=== PATIENT | female | born 1990 | race Caucasian/White ===

== ENCOUNTER 2018-10-16 23:43 | Outpatient (CLI) | payer MEDICAID ==
[~2018-10-16] VITALS: Ht 157.5 cm; Wt 80.0 kg
[~2018-10-16 23:43] MED LIST: ONDA4TAB7 PO; PREN-3 PO
[2018-10-17 00:42] LABS: MICROSCOPIC INDICATED
== END 2018-10-17 01:00 | disposition home or self-care (01) ==
LOC: LDOP 23:43
PROVIDERS: ATTEND Obstetrics & Gynecology
DX: O26.893 Other specified pregnancy related conditions, third trimester (principal); Z3A.37 37 weeks gestation of pregnancy
CPT/HCPCS: 59025; 81001; 99211; G0463

== ENCOUNTER 2018-10-25 11:15 | Inpatient (IN) | payer MEDICAID ==
[~2018-10-25] VITALS: Ht 157.5 cm; Wt 81.8 kg
[2018-10-25] MEDS ORDERED: LACTATED RINGERS 1,000 ML IV SCH (11:35)
[2018-10-25] MEDS ORDERED: OXYTOCIN 30U/ 0.9% NaCL 500ML 500 ML IV ONE (11:35)
[2018-10-25] MEDS ORDERED: MISOPROSTOL 200 MCG TABLET ONE (11:46)
[2018-10-25] MEDS ORDERED: OXYTOCIN 30U/ 0.9% NaCL 500ML 500 ML ONE (11:46)
[2018-10-25] MEDS ORDERED: LIDOCAINE 1%, 20ML ONE (11:46)
[2018-10-25] MEDS ORDERED: NEWBORN KIT ONE (11:47)
[2018-10-25 11:59] VITALS: BP 106/76
[2018-10-25 11:59] LABS: BASOPHILS # (AUTO) 0.08 x10^3/uL (0-0.1); BASOPHILS % (AUTO) 1 % (0-1); EOSINOPHILS # (AUTO) 0.02 x10^3/uL (0-0.4); EOSINOPHILS % (AUTO) 0 % (1-7); LYMPHOCYTES # (AUTO) 1.74 x10^3/uL (1-3.4); LYMPHOCYTES % (AUTO) 15 % (22-44); MD NO; MEAN CORPUSCULAR HEMOGLOBIN 31.2 pg (27.0-34.8); MEAN CORPUSCULAR HGB CONC 34.2 g/dL (32.4-35.8); MEAN CORPUSCULAR VOLUME 91.1 fL (80-100); MEAN PLATELET VOLUME 9.5 fL (7.4-10.4); MONOCYTES # (AUTO) 0.77 x10^3/uL (0.2-0.8); MONOCYTES % (AUTO) 7 % (2-9); NEUTROPHILS # (AUTO) 8.93 x10^3/uL (1.8-6.8); NEUTROPHILS % (AUTO) 77 % (42-75); PLATELET COUNT 202 x10^3/uL (130-400); RED BLOOD COUNT 3.98 x10^6/uL (3.82-5.3); RED CELL DISTRIBUTION WIDTH 12.8 % (9.6-15.2)
[2018-10-25] MEDS ORDERED: PLEASE ENTER HEIGHT AND WEIGHT MC SCH (12:00)
[2018-10-25] MEDS ORDERED: FENTANYL PF 100 MCG/2ML IVPush PRN (12:00)
[2018-10-25] MEDS ORDERED: FENTANYL PF 100 MCG/2ML IV PRN (12:00)
[2018-10-25] MEDS ORDERED: ONDANSETRON 2MG/ML, 2ML IVPush PRN (12:00)
[2018-10-25] MEDS ORDERED: FENTANYL PF 100 MCG/2ML ONE (13:33)
[2018-10-25] MEDS: OXYTOCIN 30U/ 0.9% NaCL 500ML 500 ML IV SCH ×2 (14:40→18:45)
[2018-10-25] MEDS ORDERED: IBUPROFEN 600 MG TABLET ONE (14:48)
[2018-10-25] MEDS ORDERED: OXYcodone/APAP 5/325MG TABLET ONE (14:49)
[2018-10-25] MEDS: OXYcodone/APAP 5/325MG TABLET PO PRN (14:51)
[2018-10-25] MEDS: IBUPROFEN 600 MG TABLET PO PRN ×2 (14:51→22:38)
[2018-10-25] MEDS ORDERED: OXYcodone/APAP 5/325MG TABLET PO PRN (15:00)
[2018-10-25] MEDS ORDERED: ONDANSETRON 2MG/ML, 2ML IV PRN (15:00)
[2018-10-25] MEDS ORDERED: METHYLERGONOVINE 0.2 MG/ML IM PRN (15:00)
[2018-10-25] MEDS ORDERED: MISOPROSTOL 200 MCG TABLET PR PRN (15:00)
[2018-10-25] MEDS ORDERED: ACETAMINOPHEN 325 MG TABLET PO PRN (15:00)
[2018-10-25 17:00] VITALS: BP 89/50
[2018-10-25 18:31] VITALS: BP 96/54
[2018-10-25 20:02] VITALS: BP 101/63
[2018-10-25] MEDS ORDERED: MEASLES,MUMPS&RUBELLA VACC/PF 0.5 ML SQ-VACC ONE (22:30)
[2018-10-25] MEDS: DOCUSATE 100 MG CAPSULE PO PRN (22:38)
[2018-10-26 00:10] VITALS: BP 100/64
[2018-10-26] MEDS: OXYcodone/APAP 5/325MG TABLET PO PRN (03:44)
[2018-10-26 04:29] VITALS: BP 98/64
[2018-10-26] MEDS: IBUPROFEN 600 MG TABLET PO PRN ×2 (05:04→11:09)
[2018-10-26 05:57] LABS: BASOPHILS # (AUTO) 0.04 x10^3/uL (0-0.1); BASOPHILS % (AUTO) 0 % (0-1); EOSINOPHILS # (AUTO) 0.06 x10^3/uL (0-0.4); EOSINOPHILS % (AUTO) 0 % (1-7); LYMPHOCYTES # (AUTO) 2.07 x10^3/uL (1-3.4); LYMPHOCYTES % (AUTO) 16 % (22-44); MD NO; MEAN CORPUSCULAR HEMOGLOBIN 29.9 pg (27.0-34.8); MEAN CORPUSCULAR HGB CONC 32.5 g/dL (32.4-35.8); MEAN CORPUSCULAR VOLUME 91.9 fL (80-100); MEAN PLATELET VOLUME 9.9 fL (7.4-10.4); MONOCYTES # (AUTO) 1.04 x10^3/uL (0.2-0.8); MONOCYTES % (AUTO) 8 % (2-9); NEUTROPHILS % (AUTO) 76 % (42-75); PLATELET COUNT 188 x10^3/uL (130-400); RED BLOOD COUNT 3.73 x10^6/uL (3.82-5.3); RED CELL DISTRIBUTION WIDTH 13.2 % (9.6-15.2)
[2018-10-26 08:10] VITALS: BP 98/53
[2018-10-26] MEDS: DOCUSATE 100 MG CAPSULE PO PRN (08:32)
[2018-10-26] MEDS ORDERED: PRENATAL VIT/IRON/FA 1 EACH TABLET PO SCH (09:00)
[2018-10-26] MEDS: OXYTOCIN 30U/ 0.9% NaCL 500ML 500 ML IV SCH (11:05)
[2018-10-26 12:03] VITALS: BP 95/60
[2018-10-26] MEDS ORDERED: IBUP-1222 PO (13:13)
== END 2018-10-26 16:00 | disposition home or self-care (01) | DRG 807 ==
LOC: LDOP 11:15 → LDIP 11:49 → 2NW 16:37
PROVIDERS: ADMIT Obstetrics & Gynecology; ATTEND Obstetrics & Gynecology
PROC: 10E0XZZ Delivery of Products of Conception, External Approach (ICD-10-PCS; principal; 2018-10-25)
PROC: 10907ZC Drainage of Amniotic Fluid, Therapeutic from Products of Conception, Via Natural or Artificial Opening (ICD-10-PCS; 2018-10-25)
DX: O71.82 Other specified trauma to perineum and vulva (principal); Z37.0 Single live birth; Z3A.38 38 weeks gestation of pregnancy; Z83.3 Family history of diabetes mellitus; Z23 Encounter for immunization
CPT/HCPCS: 36415; 85025; 86850; 86900; 90656; G0378; J3010; J2590; J7120